=== PATIENT | female | born 1975 | race Two or more races ===

== ENCOUNTER 2021-07-20 00:53 | Emergency (ER) | payer BC, OTHER ==
[~2021-07-20] VITALS: Ht 170.2 cm; Wt 89.4 kg
[2021-07-20 02:43] VITALS: BP 134/99
[2021-07-20] MEDS ORDERED: ONDANSETRON ODT 4 MG TAB PO ONE (03:30)
== END 2021-07-20 04:12 | disposition home or self-care (01) ==
LOC: ER 00:53
DX: J06.9 Acute upper respiratory infection, unspecified (principal); M94.0 Chondrocostal junction syndrome [Tietze]; M79.10 Myalgia, unspecified site; E66.9 Obesity, unspecified; Z68.30 Body mass index [BMI] 30.0-30.9, adult; Z20.822 Contact with and (suspected) exposure to COVID-19
CPT/HCPCS: 36415; 71045; 87426; 93005; 99285; Q0162

== ENCOUNTER 2025-07-26 08:14 | Outpatient (CLI) | payer OTHER ==
[2025-07-26 08:36] LABS: Hematocrit 39.1 % (36.0-46.0); Hemoglobin 13.4 g/dL (12.2-16.2); Mean Corpuscular Hemoglobin 30.1 pg (28.0-32.0); Mean Corpuscular Volume 87.7 fL (80.0-100.0); Nucleated Red Blood Cells % 0.1 %
[2025-07-26 08:54] LABS: Alanine Aminotransferase 28 U/L (7-40); Albumin 4.7 g/dL (3.2-4.8); Alkaline Phosphatase 83 U/L (46-116); Anion Gap 11 (5-15); BUN/Creatinine Ratio 13.3 (10.0-20.0); Blood Urea Nitrogen 10 mg/dL (9-23); Calcium 9.3 mg/dL (8.7-10.4); Carbon Dioxide 25 mmol/L (20-31); Chloride 106 mmol/L (98-107); Potassium 4.2 mmol/L (3.5-5.1); Sodium 142 mmol/L (136-145); Total Protein 7.8 g/dL (5.7-8.2); Triglycerides 101 mg/dL (< 150)
[2025-07-26 08:55] LABS: Bilirubin, Total 0.4 mg/dL (0.2-1.0); Cholesterol 206 mg/dL (< 200); Glucose 114 mg/dL (74-106); HDL Cholesterol 52 mg/dL (40-59)
[2025-07-26 10:42] LABS: Ferritin 20.0 ng/mL (10-291); Free T4 (Free Thyroxine) 1.33 ng/dL (0.89-1.76)
[2025-07-26 11:31] LABS: Hepatitis A Total Antibody Negative (Negative); Hepatitis B Surface Antigen Negative (Negative); Hepatitis C Antibody Negative (Negative)
== END 2025-07-26 17:00 | disposition home or self-care (01) ==
LOC: LAB 08:14
PROVIDERS: ATTEND Licensed Practical Nurse
DX: I10 Essential (primary) hypertension (principal); E55.9 Vitamin D deficiency, unspecified; Z13.29 Encounter for screening for other suspected endocrine disorder; Z00.01 Encounter for general adult medical examination with abnormal findings; Z13.1 Encounter for screening for diabetes mellitus
CPT/HCPCS: 36415; 80053; 80061; 82043; 82274; 82306; 82728; 83036; 84439; 84443; 85025; 86704; 86706; 86708; 86803; 87340

== ENCOUNTER 2025-07-28 09:10 | Outpatient (CLI) | payer OTHER ==
[2025-07-29 16:07] LABS: Chlamydia Trachomatis, NAA Negative (Negative); Neisseria gonorrhoeae, NAA Negative (Negative)
== END 2025-07-28 17:00 | disposition home or self-care (01) ==
LOC: LAB 09:10
DX: Z72.51 High risk heterosexual behavior (principal)
CPT/HCPCS: 36415; 86695; 86696; 86703; 86780

== ENCOUNTER 2025-09-08 09:35 | Outpatient (CLI) | payer OTHER ==
[2025-09-08 10:27] LABS: Alkaline Phosphatase 76 U/L (46-116); Anion Gap 8 (5-15); BUN/Creatinine Ratio 12.9 (10.0-20.0); Calcium 9.2 mg/dL (8.7-10.4); Carbon Dioxide 27 mmol/L (20-31); Chloride 106 mmol/L (98-107); Glucose 106 mg/dL (74-106); Potassium 4.3 mmol/L (3.5-5.1); Sodium 141 mmol/L (136-145); Total Protein 7.4 g/dL (5.7-8.2); Triglycerides 121 mg/dL (< 150)
[2025-09-08 10:28] LABS: Albumin 4.5 g/dL (3.2-4.8); Bilirubin, Total 0.5 mg/dL (0.2-1.0); HDL Cholesterol 48 mg/dL (40-59)
[2025-09-08 10:31] LABS: Alanine Aminotransferase 56 U/L (7-40); Blood Urea Nitrogen 9 mg/dL (9-23); Cholesterol 205 mg/dL (< 200)
== END 2025-09-08 17:00 | disposition home or self-care (01) ==
LOC: LAB 09:35
PROVIDERS: ATTEND Licensed Practical Nurse
DX: I10 Essential (primary) hypertension (principal); E78.2 Mixed hyperlipidemia; R73.03 Prediabetes
CPT/HCPCS: 36415; 80053; 80061; 83036